=== PATIENT | male | born 1940 | race Asian ===

== ENCOUNTER → 2017-06-24 | Outpatient (CLI) | payer MEDICARE, OTHER ==
[~2017-06-24] MED LIST: ADVAIR; ASPI-1198 PO; DOCU240C PO; LEVO500T89; MSN PO; OMEP20 PO; SENN-175 PO; SERT25TA PO; SIMV-260 PO; TAMS0.4C32 PO; TELM40 PO; TRAM50TA4
== END | disposition home or self-care (01) ==
LOC: RADPV 15:03
PROVIDERS: ATTEND Orthopaedic Surgery
DX: M17.12 Unilateral primary osteoarthritis, left knee (principal); M25.762 Osteophyte, left knee